=== PATIENT | female | born 2000 | race Caucasian/White ===

== ENCOUNTER 2022-02-13 06:26 | Emergency (ER) | payer MEDICAID, SELFPAY ==
[2022-02-13 05:44] VITALS: BP 160/77; PULSE 92; RESP 18; TEMP 36.6; O2SAT 99; BMI 32.4
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
[2022-02-13 06:12] LABS: Urine Pregnancy, HCG Qual. Positive (Negative)
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
--- NOTE | 2022-02-13 07:08 | PC.NURSE ---
[employer] [employer] called the ED and is speaking with patient on the phone
--- NOTE | 2022-02-13 07:43 | PC.NURSE ---
pt states she wants to go to the [facility] in [place]. informed her we will let care management know when they arrive.
--- NOTE | 2022-02-13 07:44 | PC.NURSE ---
offered pt breakfast, pt states she has already ate
[2022-02-13 07:49] VITALS: BP 106/58; PULSE 72; O2SAT 98
[2022-02-13 07:50] VITALS: BP 106/58; PULSE 81; RESP 17; O2SAT 97
--- NOTE | 2022-02-13 07:50 | PC.NURSE ---
pt c/o shoulder pain. MD notified and medication order placed.
--- NOTE | 2022-02-13 07:54 | PC.NURSE ---
spoke with anjum in care management who states she will start facilitating transfer to the [facility]
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
[2022-02-13 08:00] VITALS: BP 104/58; PULSE 90; O2SAT 99
--- NOTE | 2022-02-13 08:00 | PC.NURSE ---
spoke with anjum in who gave me the number to [facility] in [place] to call for patient intake
--- NOTE | 2022-02-13 08:03 | PC.NURSE ---
called [facility] in [place] and spoke with yohana. states she needs to speak to the pt to do a verbal intake. phone provided to pt.
--- NOTE | 2022-02-13 08:18 | PC.NURSE ---
called anjum back in to let her know pt intake was finished
--- NOTE | 2022-02-13 08:30 | PC.NURSE ---
pt states the [facility] in [place] does not do short term placement. care management called and was given two numbers to call for placement. pt calling resources now
--- NOTE | 2022-02-13 08:34 | PC.NURSE ---
yaakov herrera in [place] called. states pt will have to be present to check for availability. other resource being called by pt.
--- NOTE | 2022-02-13 09:39 | PC.NURSE ---
pt on hold waiting to speak to intake
--- NOTE | 2022-02-13 09:57 | PC.NURSE ---
care management at bedside
--- NOTE | 2022-02-13 10:12 | PC.NURSE ---
anjum with care management spoke with patient. states she is going to the [facility] in [facility]. anjum is calling to set up transport for pt
--- NOTE | 2022-02-13 10:44 | PC.NURSE ---
[facility] called and stated they were coming to get pt
[2022-02-13 11:20] VITALS: BP 112/74; PULSE 84; RESP 17; TEMP 36.9; O2SAT 99
== END 2022-02-13 11:21 | disposition home or self-care (01) ==
PROVIDERS: Emergency Provider Emergency Medicine
DX: S43.402A Unspecified sprain of left shoulder joint, initial encounter (principal); Y04.0XXA Assault by unarmed brawl or fight, initial encounter; Z34.90 Encounter for supervision of normal pregnancy, unspecified, unspecified trimester
CPT/HCPCS: 73030; 81025; 99283